=== PATIENT | female | born 1955 | race Two or more races ===

== ENCOUNTER → 2023-08-07 14:14 | Outpatient (REF) | payer MEDICARE, OTHER, SELFPAY | LOC: HWWDC 14:14 | PROVIDERS: ATTENDING PHYSICIAN Family Medicine; REFERRING PHYSICIAN Obstetrics & Gynecology Gynecology | DX: Z12.31 Encounter for screening mammogram for malignant neoplasm of breast (principal) | CPT/HCPCS: 77063; 77067 ==

== ENCOUNTER → 2024-09-01 12:56 | Outpatient (REF) | payer MEDICARE, OTHER, SELFPAY | LOC: HWRAD 12:56 | PROVIDERS: ATTENDING PHYSICIAN Internal Medicine | DX: M19.071 Primary osteoarthritis, right ankle and foot (principal); M19.072 Primary osteoarthritis, left ankle and foot; R22.42 Localized swelling, mass and lump, left lower limb | CPT/HCPCS: 93970 ==

== ENCOUNTER → 2024-09-03 14:32 | Outpatient (REF) | payer MEDICARE, OTHER, SELFPAY | LOC: HWWDC 14:32 | PROVIDERS: ATTENDING PHYSICIAN Obstetrics & Gynecology Gynecology | DX: Z12.31 Encounter for screening mammogram for malignant neoplasm of breast (principal) | CPT/HCPCS: 77063; 77067 ==

== ENCOUNTER → 2024-09-05 13:30 | Outpatient (REF) | payer MEDICARE, OTHER, SELFPAY | LOC: HWRAD 13:30 | PROVIDERS: ATTENDING PHYSICIAN Obstetrics & Gynecology Gynecology; FAMILY PHYSICIAN Internal Medicine | DX: Z78.0 Asymptomatic menopausal state (principal) | CPT/HCPCS: 77080 ==

== ENCOUNTER → 2025-01-09 14:39 | Outpatient (REF) | payer MEDICARE, OTHER, SELFPAY | LOC: HWRAD 14:39 | PROVIDERS: ATTENDING PHYSICIAN Obstetrics & Gynecology Gynecology; FAMILY PHYSICIAN Internal Medicine | DX: D17.30 Benign lipomatous neoplasm of skin and subcutaneous tissue of unspecified sites (principal) | CPT/HCPCS: 76604 ==

== ENCOUNTER → 2025-02-13 12:57 | Outpatient (REF) | payer MEDICARE, OTHER, SELFPAY | LOC: RAD 12:57 | PROVIDERS: ATTENDING PHYSICIAN Internal Medicine Gastroenterology; FAMILY PHYSICIAN Internal Medicine | DX: R19.4 Change in bowel habit (principal); R10.30 Lower abdominal pain, unspecified; R14.0 Abdominal distension (gaseous) | CPT/HCPCS: 74177; Q9967 ==

== ENCOUNTER 2025-03-05 06:20 | Day surgery (SDC) | payer MEDICARE, OTHER, SELFPAY | END 2025-03-05 12:02 | disposition home or self-care (01) | LOC: GI 06:20 | PROVIDERS: ATTENDING PHYSICIAN Internal Medicine Gastroenterology | DX: R12 Heartburn (principal); R93.3 Abnormal findings on diagnostic imaging of other parts of digestive tract; K44.9 Diaphragmatic hernia without obstruction or gangrene; K31.7 Polyp of stomach and duodenum; K29.50 Unspecified chronic gastritis without bleeding | CPT/HCPCS: 43239; 88305; 88342 ==